=== PATIENT | female | born 1990 | race Caucasian/White ===

== ENCOUNTER 2017-02-09 10:11 | Emergency (ER) | payer MEDICAID ==
[2010-04-23 15:27] VITALS: BMI 26.1
[2017-02-09 11:47] LABS: BASOPHILS 0.2 % (0.0-2.0); EOSINOPHILS 0.6 % (0-7); HEMATOCRIT 39.7 % (36.0-48.0); IMMATURE GRANULOCYTES 0.2 % (0-5); MCHC 35.3 g/dL (31.0-37.0); MCV 93.6 fL (80.0-100.0); MEAN PLATELET VOLUME 10.5 fL (7.4-10.4); MONOCYTES 9.9 % (2-11); NEUTROPHILS 56.1 % (40-80); RBC 4.24 10x6/uL (4.00-5.40); RDW 12.5 % (11.5-14.5); WBC 8.7 10x3/uL (4.8-10.8)
[2017-02-09 11:50] LABS: PLATELET COUNT 255 10x3/uL (130-400)
[2017-02-09 12:00] LABS: ALBUMIN 4.3 g/dL (3.4-5.0); ALKALINE PHOSPHATASE 30 U/L (46-116); ALT (SGPT) 15 U/L (10-68); BILIRUBIN - TOTAL 0.74 mg/dL (0.2-1.3); CALC OSMOLALITY 278 mosm/kg (275-300); CALCIUM 9.6 mg/dL (8.5-10.1); CARBON DIOXIDE 23.4 mmol/L (21.0-32.0); CHLORIDE - SERUM 105 mmol/L (98-107); CREATININE - SERUM 0.7 mg/dL (0.6-1.3); GLUCOSE 97 mg/dL (74-106); POTASSIUM - SERUM 3.6 mmol/L (3.5-5.1); PROTEIN - SERUM 7.9 g/dL (6.4-8.2); SODIUM 141 mmol/L (136-145); UREA NITROGEN 8 mg/dL (7-18); eGFR NON AFRICAN AMERICAN > 90 mL/min (90-120)
== END 2017-02-09 13:20 | disposition home or self-care (01) ==
LOC: D.ER 10:11
PROVIDERS: Emergency Medicine
DX: R06.00 Dyspnea, unspecified (principal); F41.9 Anxiety disorder, unspecified

== ENCOUNTER 2017-05-15 01:09 | Emergency (ER) | payer MEDICAID ==
[2010-04-23 15:27] VITALS: BMI 26.1
== END 2017-05-15 01:45 | disposition home or self-care (01) ==
LOC: D.ER 01:09
DX: S90.31XA Contusion of right foot, initial encounter (principal); S40.022A Contusion of left upper arm, initial encounter; Y04.2XXA Assault by strike against or bumped into by another person, initial encounter; Y93.89 Activity, other specified; Y92.89 Other specified places as the place of occurrence of the external cause; S01.81XA Laceration without foreign body of other part of head, initial encounter

== ENCOUNTER 2017-07-28 14:34 | Emergency (ER) | payer MEDICAID ==
[2010-04-23 15:27] VITALS: BMI 26.1
[2017-07-28 15:42] LABS: BASOPHILS 0.3 % (0-2); EOSINOPHILS 0.8 % (0-7); HEMATOCRIT 41.5 % (36.0-48.0); HEMOGLOBIN 14.6 g/dL (12-16); IMMATURE GRANULOCYTES 0.1 % (0-5); MCH 33.6 pg (26.0-34.0); MCHC 35.2 g/dL (31.0-37.0); MCV 95.6 fL (80.0-100.0); MEAN PLATELET VOLUME 10.7 fL (7.4-10.4); MONOCYTES 14.9 % (2-11); NEUTROPHILS 56.9 % (40-80); PLATELET COUNT 220 10x3/uL (130-400); RBC 4.34 10x6/uL (4.00-5.40); RDW 12.1 % (11.5-14.5); WBC 7.3 10x3/uL (4.8-10.8)
[2017-07-28 15:44] LABS: APPEARANCE HAZY (CLEAR); COLOR YELLOW (YELLOW); SPECIFIC GRAVITY 1.015 (1.005-1.020)
[2017-07-28 15:45] LABS: BILIRUBIN NEGATIVE (NEGATIVE); GLUCOSE NEGATIVE (NEGATIVE); KETONE NEGATIVE (NEGATIVE); LEUKOCYTE ESTERASE NEGATIVE (NEGATIVE); NITRITE NEGATIVE (NEGATIVE); PROTEIN NEGATIVE (NEGATIVE)
[2017-07-28 15:48] LABS: ALBUMIN 4.1 g/dL (3.4-5.0); ALKALINE PHOSPHATASE 37 U/L (46-116); ALT (SGPT) 19 U/L (10-68); BILIRUBIN - TOTAL 0.76 mg/dL (0.2-1.3); CALC OSMOLALITY 281 mosm/kg (275-300); CALCIUM 8.9 mg/dL (8.5-10.1); CARBON DIOXIDE 26.6 mmol/L (21.0-32.0); CHLORIDE - SERUM 105 mmol/L (98-107); CREATININE - SERUM 0.7 mg/dL (0.6-1.3); GLUCOSE 88 mg/dL (74-106); LIPASE 192 U/L (73-393); POTASSIUM - SERUM 3.9 mmol/L (3.5-5.1); PROTEIN - SERUM 7.5 g/dL (6.4-8.2); SODIUM 142 mmol/L (136-145); UREA NITROGEN 12 mg/dL (7-18); eGFR NON AFRICAN AMERICAN > 90 mL/min (90-120)
[2017-07-28 15:55] LABS: HCG URINE NEGATIVE (NEGATIVE)
== END 2017-07-28 16:34 | disposition home or self-care (01) ==
LOC: D.ER 14:34
PROVIDERS: Emergency Medicine
DX: R10.9 Unspecified abdominal pain (principal)

== ENCOUNTER 2018-05-25 09:26 | Emergency (ER) | payer MEDICAID ==
[~2018-05-25] VITALS: Ht 167.6 cm; Wt 61.4 kg
[2018-05-25 09:36] VITALS: Ht 167.6 cm; Wt 61.4 kg
[2018-05-25 10:05] LABS: BASOPHILS 0.4 % (0-2); EOSINOPHILS 1.3 % (0-7); HEMATOCRIT 39.5 % (36.0-48.0); IMMATURE GRANULOCYTES 0.4 % (0-5); LYMPHOCYTES 26.1 % (15-50); MCH 33.8 pg (26.0-34.0); MCHC 35.4 g/dL (31.0-37.0); MCV 95.4 fL (80.0-100.0); MEAN PLATELET VOLUME 10.2 fL (7.4-10.4); MONOCYTES 13.4 % (2-11); NEUTROPHILS 58.4 % (40-80); PLATELET COUNT 225 10x3/uL (130-400); RBC 4.14 10x6/uL (4.00-5.40); WBC 7.6 10x3/uL (4.8-10.8)
[2018-05-25 10:24] LABS: ALKALINE PHOSPHATASE 37 U/L (46-116); ALT (SGPT) 12 U/L (10-68); BILIRUBIN - TOTAL 0.65 mg/dL (0.2-1.3); CALC OSMOLALITY 275 mosm/kg (275-300); CALCIUM 9.1 mg/dL (8.5-10.1); CARBON DIOXIDE 24.4 mmol/L (21.0-32.0); CHLORIDE - SERUM 103 mmol/L (98-107); CREATININE - SERUM 0.6 mg/dL (0.6-1.3); GLUCOSE 92 mg/dL (74-106); POTASSIUM - SERUM 3.9 mmol/L (3.5-5.1); PROTEIN - SERUM 7.3 g/dL (6.4-8.2); SODIUM 139 mmol/L (136-145); UREA NITROGEN 7 mg/dL (7-18); eGFR NON AFRICAN AMERICAN > 90 mL/min (90-120)
[2018-05-25 10:31] LABS: APPEARANCE HAZY (CLEAR); COLOR YELLOW (YELLOW)
[2018-05-25 10:32] LABS: BILIRUBIN NEGATIVE (NEGATIVE); GLUCOSE NEGATIVE (NEGATIVE); KETONE NEGATIVE (NEGATIVE); NITRITE POSITIVE (NEGATIVE); PROTEIN NEGATIVE (NEGATIVE); UROBILINOGEN NORMAL (NORMAL)
[2018-05-25 10:33] LABS: RED CELLS - URINE 0-5 /hpf (0-5)
[2018-05-25 10:34] LABS: BACTERIA MANY /hpf (NONE SEEN)
[2018-05-25 10:35] LABS: MUCUS <1+ /lpf (NONE SEEN)
[2018-05-25 10:45] LABS: HCG - QUANTITATIVE (MATERNAL) 30666 mIU/mL
[2018-05-25] MEDS ORDERED: MACROBID100 MG PO (11:42)
[2018-05-25 12:14] VITALS: BP 111/77
[2018-05-28 12:08] LABS: CHLAMYDIA TRACHOMATIS, NAA Negative (Negative)
== END 2018-05-25 12:15 | disposition home or self-care (01) ==
LOC: D.ER 09:26
PROVIDERS: Family Medicine
DX: O20.9 Hemorrhage in early pregnancy, unspecified (principal); Z3A.00 Weeks of gestation of pregnancy not specified; R10.30 Lower abdominal pain, unspecified

== ENCOUNTER 2018-06-02 19:06 | Emergency (ER) | payer MEDICAID ==
[~2018-06-02] VITALS: Ht 167.6 cm; Wt 58.2 kg
[~2018-06-02 19:06] MED LIST: MACROBID100 MG PO
[2018-06-02 19:10] VITALS: Ht 167.6 cm; Wt 58.2 kg
[2018-06-02 21:29] VITALS: BP 121/75
[2018-06-03] MEDS ORDERED: MEDROL DOSE PACK4 MG PO (20:18)
[2018-06-03] MEDS ORDERED: ZANTAC150 MG PO (20:18)
== END 2018-06-02 21:05 | disposition home or self-care (01) ==
LOC: D.ER 19:06
DX: O26.86 Pruritic urticarial papules and plaques of pregnancy (PUPPP) (principal); Z3A.08 8 weeks gestation of pregnancy

== ENCOUNTER 2018-06-03 19:40 | Emergency (ER) | payer MEDICAID ==
[~2018-06-03] VITALS: Ht 167.6 cm; Wt 58.2 kg
[2018-06-03 19:53] VITALS: Ht 167.6 cm; Wt 58.2 kg
[2018-06-03] MEDS ORDERED: MEDROL DOSE PACK4 MG PO (20:18)
[2018-06-03] MEDS ORDERED: ZANTAC150 MG PO (20:18)
[2018-06-03 20:29] VITALS: BP 116/74
== END 2018-06-03 20:31 | disposition home or self-care (01) ==
LOC: D.ER 19:40
DX: O26.86 Pruritic urticarial papules and plaques of pregnancy (PUPPP) (principal); Z3A.08 8 weeks gestation of pregnancy

== ENCOUNTER → 2018-08-28 08:20 | Outpatient (CLI) | payer MEDICAID ==
[2018-06-03 19:53] VITALS: BMI 20.7
[~2018-08-28 08:20] MED LIST changes: +MEDROL DOSE PACK4 MG PO; +ZANTAC150 MG PO
== END | disposition home or self-care (01) ==
LOC: D.US 08:20
DX: Z34.90 Encounter for supervision of normal pregnancy, unspecified, unspecified trimester (principal); Z3A.00 Weeks of gestation of pregnancy not specified

== ENCOUNTER → 2018-11-07 07:48 | Outpatient (CLI) | payer MEDICAID ==
[2018-06-03 19:53] VITALS: BMI 20.7
== END | disposition home or self-care (01) ==
LOC: D.US 07:48
DX: R10.11 Right upper quadrant pain (principal)

== ENCOUNTER 2019-01-10 05:46 | Inpatient (IN) | payer MEDICAID ==
[2019-01-10] VITALS (9 sets, daily range): BP systolic 109–123; BP diastolic 58–72; Ht 167.6 cm; Wt 76.7 kg
[~2019-01-10] VITALS: Ht 167.6 cm; Wt 76.7 kg
[2019-01-10] MEDS ORDERED: AMOXIL250 M1 (06:23)
[2019-01-10] MEDS ORDERED: ZITHROMAX250 MG (06:23)
[2019-01-10] MEDS ORDERED: ZITHROMAX TRI-500 MG (06:24)
[2019-01-10 07:17] LABS: HEMATOCRIT 30.8 % (36.0-48.0); HEMOGLOBIN 10.4 g/dL (12-16); MCH 32.9 pg (26.0-34.0); MCHC 33.8 g/dL (31.0-37.0); MCV 97.5 fL (80.0-100.0); MEAN PLATELET VOLUME 10.9 fL (7.4-10.4); RBC 3.16 10x6/uL (4.00-5.40); RDW 13.2 % (11.5-14.5); WBC 13.7 10x3/uL (4.8-10.8)
[2019-01-10 07:20] LABS: APPEARANCE CLEAR (CLEAR); BILIRUBIN NEGATIVE (NEGATIVE); COLOR STRAW (YELLOW); GLUCOSE NEGATIVE (NEGATIVE); KETONE NEGATIVE (NEGATIVE); NITRITE NEGATIVE (NEGATIVE); PROTEIN NEGATIVE (NEGATIVE); UROBILINOGEN NORMAL (NORMAL)
[2019-01-10 08:33] LABS: UDS - AMPHET NEGATIVE QUAL (NEGATIVE); UDS - BARB NEGATIVE QUAL (NEGATIVE); UDS - BENZO NEGATIVE QUAL (NEGATIVE); UDS - COCAINE NEGATIVE QUAL (NEGATIVE); UDS - OPIATE NEGATIVE QUAL (NEGATIVE); UDS - PCP NEGATIVE QUAL (NEGATIVE); UDS - THC NEGATIVE QUAL (NEGATIVE)
--- NOTE | 2019-01-10 13:46 | NUR ---
RECEIVED PT FROM VIA BED TO ROOM 1274. BED LOCKED AND PLACED IN LOW POSITION. VSS. HRRR WITHOUT AUDIBLE MURMUR. BBS CLEAR. BS HYPOACTIVE. ABDOMEN SOFT/NON-DISTENDED. ABDOMINAL DRESSING DRY WITHOUT DRAINAGE NOTED. FUNDUS AT 2/U. MASSAGED WITH HALF DOLLAR SIZED CLOT EXPRESSED. PERICARE DONE. MOD RUBRA LOCHIA NOTED ON CHUX. PT REPOSITIONS TO RIGHT SIDE IN BED. PROPPED WITH PILLOW. ICE PACK TO INCISION. SCDS ON BLE. PUMP ON. PIV TO RIGHT FOREARM. SITE CLEAR. LR INFUSING WITH PITOCIN 20 UNITS AT 125 ML/HR. PT STATES C/O INCISIONAL PAIN OF "6" ON 0-10 PAIN SCALE. PT ORIENTED TO ROOM, BED, AND CALL LIGHT. SR UPX 2. CALL LIGHT IN REACH.
--- NOTE | 2019-01-10 14:06 | NUR ---
PT C/O INCISIONAL PAIN OF "6" ON 0-10 PAIN SCALE. TORADOL 30 MG GIVEN SIVP OVER 2 MINUTES. PT INSTRUCTED ON MED. VERBALIZES UNDERSTANDING. NEW BAG NS WITH PITOCIN UP AT 125 ML/HR.
--- NOTE | 2019-01-10 14:32 | NUR ---
PT REQUESTS AND RECEIVES CHRISTINE.
--- NOTE | 2019-01-10 14:35 | NUR ---
HOLLOWAY TO GRAVITY DRAINING CLEAR, YELLOW URINE. 600 ML NOTED IN BAG AT THIS TIME.
--- NOTE | 2019-01-10 14:50 | NUR ---
PT C/O INCISIONAL PAIN OF "9" ON 0-10 PAIN SCALE. DILAUDID 2 MG GIVEN SIVP OVER 2 MINUTES. PT INSTRUCTED ON MED. VERBALIZES UNDERSTANDING.
--- NOTE | 2019-01-10 15:00 | NUR ---
FUNDUS FIRM AT U/U. RUBRA LOCHIA MOD AMT. NO CLOTS NOTED. PERIPAD CHANGED.
--- NOTE | 2019-01-10 15:48 | NUR ---
PT SITTING UP IN BED. C/O NAUSEA. EMESIS BASIN AND COLD, WET CLOTH PROVIDED TO PT. PT STATES "I THINK IT WAS THAT WATER". STATES "I'M BETTER NOW".
--- NOTE | 2019-01-10 16:30 | NUR ---
I/O COMPLETED. PERICARE DONE. CHUX AND PERIPAD CHANGED. MOD RUBRA LOCHIA NOTED. NO CLOTS EXPRESSED ON FUNDAL MASSAGE. ABDOMINAL DRESSING DRY WITHOUT DRAINAGE. FRESH ICE PACK TO INCISION. PT REPOSITIONS TO LEFT SIDE. PROPPED WITH PILLOWS. PT MOVES WELL IN BED. TAN WELL.
--- NOTE | 2019-01-10 18:00 | NUR ---
PT LYING SUPINE IN BED. HOLDS INFANT WITH MUCH WARMTH SHOWN. DENIES C/O PAIN. REQUESTS AND RECEIVES LIGHTS OUT.
--- NOTE | 2019-01-10 19:10 | NUR ---
REPORT GIVEN TO ON-COMING SHIFT.
--- NOTE | 2019-01-10 19:23 | NUR ---
PT REPORT RECIEVED FROM TRIPP REED TO ASSUME PATIENT CARE.
--- NOTE | 2019-01-10 19:33 | NUR ---
DILAUDID 2 MG SLOW IVP PER PT REQUEST FOR PAIN 05/30. SEE EMAR.
--- NOTE | 2019-01-10 20:03 | NUR ---
TORADOL 30MG SLOW IVP PER MD ORDERS AND ANCEF 2 GRAMS IVPB PER ALARIS PUMP STARTED AT THIS TIME. SEE EMAR
--- NOTE | 2019-01-10 20:12 | NUR ---
PATIENT LYING IN BED HOLDING INFANT SKIN TO SKIN. RESPIRATIONS EVEN AND NON LABORED. SHIFT ASSESSMENT COMPLETED, SEE FLOWSHEET. LOW TRANSVERSE ABDOMINAL DRESSING REMAINS CLEAN DRY AND INTACT. PERICARE PERFORMED, MODERATE BLEEDING NOTED UPON PATIENT LIFTING HER BUTTOCKS OFF OF THE BED TO CHANGE THE CHUX PAD, NO CLOTS NOTED AND CLEAN PADS PLACED. HOLLOWAY CATHETER DRAINING TO GRAVITY, NOTED TO HAVE 150 ML CLEAR YELLOW URINE IN BAG. FRESH ICE PACK PLACED TO ABDOMEN. BOWEL SOUNDS ACTIVE IN ALL FOUR QUADRANTS, CRACKERS AND JUICE PROVIDED PER PT REQUEST. NO FURTHER NEEDS IDENTIFIED AT THIS TIME. BED REMAINS LOCKED IN LOW POSITION, SIDE RAILS UPX2, CALL JOHNSON AND TRAY TABLE IN REACH. WILL CONTINUE TO MONITOR.
--- NOTE | 2019-01-10 21:40 | NUR ---
PT STATES THAT SHE IS UNABLE TO EAT THE CRACKERS AND WILL JUST STICK WITH JUICE AND CHICKEN BROTH. WET WASH CLOTH PLACED TO FOREHEAD PER REQUEST. PT DENIES OTHER NEEDS.
--- NOTE | 2019-01-10 22:30 | NUR ---
DR GÓMEZ CALLED LABOR UNIT, NEW ORDERS NOTED TO SALINE LOCK IV AND D/C IV FLUIDS AND IV PAIN MEDICINE WELL D/C HOLLOWAY CATHETER. PT MAY HAVE A REGULAR DIET.
--- NOTE | 2019-01-10 23:12 | NUR ---
DILAUDID 2 MG SLOW IVP PER PT REQUEST THEN IV SALINE LOCKED PER MD ORDERS. HOLLOWAY CATHETER REMOVED WITHOUT INCIDENT WITH 250ML CLEAR YELLOW URINE IN BAG. PERICARE PERFORMED, BLEEDING SMALL RUBRA, NO CLOTS. CLEAN PADS PLACED. FRESH ICE PACK TO ABDOMEN AND COOL RAG FOR PTS FOREHEAD. SANDWICH TRAY, JELLO AND PUDDING PROVIDED ALONG WITH A CUP OF ICE PER PT REQUEST. BED REMAINS LOCKED IN LOW POSITION, SIDE RAILS UPX2, CALL JOHNSON AND TRAY TABLE IN REACH. WILL CONTINUE TO MONITOR.
--- NOTE | 2019-01-11 01:57 | NUR ---
TORADOL 30MG SLOW IVP PER MD ORDERS. SEE EMAR
--- NOTE | 2019-01-11 02:00 | NUR ---
PATIENT HAD GOTTEN HERSELF UP TO THE BATHROOM, VOIDED 100ML AND PERICARE PERFORMED. CLEAN PADS IN PLACE. FRESH ICE PACK PLACED TO ABDOMEN AND PILLOW PLACED UNDER ARM WHILE HOLDING FOR COMFORT. PT BED REMAINS LOCKED IN LOW POSITION, SIDERAILS UPX2, CALL JOHNSON AND TRAY TABLE IN REACH. WILL CONTINUE TO MONITOR.
--- NOTE | 2019-01-11 02:41 | NUR ---
PERCOCET 10/325MG PO PER PT REQUEST FOR 810 PAIN. PATIENT EATING SANDWICH AND HOLDING INFANT. DENIES OTHER NEEDS. WILL CONTINUE TO MONITOR.
--- NOTE | 2019-01-11 04:52 | NUR ---
PATIENT ASSISTED UP TO BATHROOM AT THIS TIME, VOIDED WITHOUT DIFFICULTY. PT STATES SHE HAD TWO SMALL CLOTS. PERICARE PERFORMED, CLEAN PAD AND PANTIES PROVIDED AND PT BACK TO BED. REMAINS AT BEDSIDE IN OPEN CRIB, SIGNIFICANT OTHER REMAINS AT BEDSIDE WELL. NO FURTHER NEEDS IDENTIFIED. WILL CONTINUE TO MONITOR.
--- NOTE | 2019-01-11 06:10 | NUR ---
ICE BROUGHT TO PATIENT PER REQUEST. DENIES OTHER NEEDS. WILL CONTINUE TO MONITOR.
--- NOTE | 2019-01-11 07:25 | NUR ---
DR GÓMEZ TO PT ROOM.
[2019-01-11 07:28] LABS: RAPID PLASMA REAGIN Non Reactive (Non Reactive)
[2019-01-11 07:39] VITALS: BP 112/61
--- NOTE | 2019-01-11 07:39 | NUR ---
PT LYING SUPINE IN BED. AWAKE. AAO X 3. VSS. HRRR WITHOUT AUDIBLE MURMUR. BBS CLEAR. BS X 4. ABDOMEN SOFT/NON-DISTENDED. PT STATES PASSING GAS. ABDOMINAL DRESSING DRY WITHOUT DRAINAGE NOTED. FUNDUS FIRM AT U/1. RUBRA LOCHIA SMALL AMT. NO CLOTS NOTED. NEG HOMANS' SIGN. PPP. NO EDEMA NOTED TO BLE. PT C/O ABDOMINAL AND RIB PAIN OF "8" ON 0-10 PAIN SCALE. SL TO LEFT FOREARM. FLUSHES WITH NS. SITE CLEAR. TORADOL 30 MG GIVEN SIVP OVER 2 MINUTES. SL FLUSHED WITH NS AFTER MED. SITE CLEAR. PT TAN WELL. PT REQUESTS AND RECEIVES CRANBERRY JUICE AND PRUNE JUICE. VOICES NO OTHER C/O OR NEEDS. SR UP X 2. CALL LIGHT IN REACH.
--- NOTE | 2019-01-11 08:55 | NUR ---
PT AMBULATORY IN ROOM CARING FOR INFANT. REGULAR DIET SERVED. PT STATES FEELS BETTER OUT OF BED.
--- NOTE | 2019-01-11 09:15 | NUR ---
PT AMBULATORY IN HALLS. TOLERATING ACTIVITY WELL.
--- NOTE | 2019-01-11 11:25 | NUR ---
PT CALLS ON LIGHT. REQUESTS PAIN MED. NORCO GIVEN PO ORDERED. PT INSTRUCTED ON MED. VERBALIZES UNDERSTANDING.
[2019-01-11 13:54] VITALS: BP 132/69
--- NOTE | 2019-01-11 14:05 | NUR ---
PT UP TO SHOWER. BED LINENS CHANGED.
--- NOTE | 2019-01-11 14:12 | NUR ---
DR GÓMEZ ON UNIT. CLARIFIED ORDERS AND ORDERS RECEIVED.
--- NOTE | 2019-01-11 15:39 | NUR ---
PT SITTING UP IN CHAIR. C/O INCISIONAL PAIN AND NECK PAIN OF "10" ON 0-10 PAIN SCALE. NORCO 10/325 2 TABS GIVEN PO ORDERED. PT ALSO GIVEN MYLICON 80 MG CHEW TAB ORDERED. PT INSTRUCTED ON MEDS. VERBALIZES UNDERSTANDING.
--- NOTE | 2019-01-11 16:33 | NUR ---
PT SITTING UP ON COUCH. STATES PAIN CONTINUES. STATES PAIN MED NOT RELIEVING PAIN. PT TO BED. DULCOLAX SUPPOSITORY GIVEN TO PT. PT INSTRUCTED ON MED AND TO HOLD FOR AT LEAST 30 MINUTES. PT VERBALIZES UNDERSTANDING.
--- NOTE | 2019-01-11 18:06 | NUR ---
PT SITTING UP IN BED. HOLDS WITH MUCH WARMTH SHOWN. STATES FEELS MUCH BETTER SINCE TAKING SUPPOSITORY. STATES HAS HAD SMALL BM AND PASSED A LOT OF GAS. REQUESTS AND RECEIVES CHICKEN BROTH.
--- NOTE | 2019-01-11 18:52 | NUR ---
PT AMBULATORY IN HALLS.
--- NOTE | 2019-01-11 19:00 | NUR ---
PT REPORT RECEIVED FROM BRIANNA ALMAGUER TO ASSUME PATIENT CARE.
[2019-01-11 19:37] VITALS: BP 123/58
--- NOTE | 2019-01-11 19:48 | NUR ---
IBUPROFEN 600MG PO, NORCO 10/325MG TWO TABS PO AND SIMETHICONE 80 MG PO PER PT REQUEST AND MD ORDERS. SEE EMAR
--- NOTE | 2019-01-11 20:00 | NUR ---
GRAPE JUICE AND ICE PROVIDED PER PT REQUEST.
--- NOTE | 2019-01-11 20:33 | NUR ---
PATIENT RESTING QUIETLY WITH IN HER ARMS, SIGNIFICANT OTHER IN BED WITH HER. BED REMAINS LOCKED IN LOW POSITION, SIDE RAILS UPX2, CALL JOHNSON AND TRAY TABLE IN REACH. WILL CONTINUE TO MONITOR.
--- NOTE | 2019-01-11 22:16 | NUR ---
PATIENT PROVIDED WITH TRAVIS DA SILVA PER REQUEST, DENIES OTHER NEEDS. WILL CONTINUE TO MONITOR.
--- NOTE | 2019-01-11 23:10 | NUR ---
PT SITTING IN BED HOLDING , DENIES NEEDS. BED REMAINS LOCKED IN LOW POSITION, SIDE RAILS UPX2, CALL JOHNSON AND TRAY TABLE IN REACH.
--- NOTE | 2019-01-12 01:17 | NUR ---
PATIENT AMBULATING IN ROOM, [place] 5/325 ONE TAB PO PER PT REQUEST. SEE EMAR. DENIES OTHER NEEDS. WILL CONTINUE TO MONITOR
--- NOTE | 2019-01-12 03:02 | NUR ---
PT SLEEPING WITH NO DISTRESS NOTED, WILL CONTINUE TO MONITOR.
--- NOTE | 2019-01-12 05:30 | NUR ---
PATIENT SLEEPING WITH EVEN RESPIRATIONS, NO DISTRESS NOTED. SIGNIFICANT OTHER REMAINS AT BEDSIDE FOR SUPPORT. BED REMAINS LOCKED IN LOW POSITION, SIDE RAILS UPX2, CALL JOHNSON AND TRAY TABLE IN REACH. WILL CONTINUE TO MONITOR.
--- NOTE | 2019-01-12 06:35 | NUR ---
MEDICATION ADMINISTERED PER PT REQUEST FOR 06/30 PAIN. SEE EMAR TRAVIS DA SILVA PROVIDED. PT DENIES OTHER NEEDS, WILL CONTINUE TO MONITOR.
--- NOTE | 2019-01-12 07:05 | NUR ---
ASSUMED CARE OF THIS PATIENT AFTER REPORT.
[2019-01-12 07:30] VITALS: BP 108/59
--- NOTE | 2019-01-12 07:30 | NUR ---
SHIFT ASSESSMENT COMPLETED. SITTING UP ON EDGE OF BED HOLDING IN ARMS. VISITOR SLEEPING ON COUCH. SAYS SHE RECEIVED MEDICATION EARLIER BUT SAYS IT "HAS NOT KICKED IN". GETTING READY TO GET UP TO BATHROOM. PASSING GAS AND VOIDING WITHOUT DIFFICULTY. DISCUSSED RELIEF MEASURES FOR GAS AND INCISION CARE. ANTICIPATE DC HOME TODAY. NON SMOKER, RH POSITIVE, RUBELLA IMMUNE, LAST TDAP BOOSTER 2009, DECLINES FLU VACCINE. NO REQUESTS AT PRESENT.
--- NOTE | 2019-01-12 08:58 | NUR ---
SITTING UP IN BED BOTTLEFEEDING . DENIES NEEDING ANYTHING. SAYS HER PAIN IS GETTING BETTER. NOW A 04/30. SIDE RAILS UP X 2, CALL LIGHT IN REACH.
--- NOTE | 2019-01-12 10:01 | NUR ---
SITTING UP IN BED TALKING ON PHONE. INFANT IN ARMS. DENIES NEEDING ANYTHING AT THIS TIME. CALL LIGHT IN REACH. TO CALL IF ANYTHING IS NEEDED.
--- NOTE | 2019-01-12 11:25 | NUR ---
AMBULATING IN [place]. IN NURSERY.
--- NOTE | 2019-01-12 11:34 | NUR ---
PT AMBULATING IN HALLS, REQUESTING TO REPEAT SUPPOSITORY THAT SHE HAD YESTERDAY TO HELP WITH GAS PAIN AND ABD DISCOMFORT. PT AMBULATES BACK TO ROOM. DULCOLAX SUPP GIVEN. PT ENCOURAGED TO CONTINUE AMBULATING TO HELP GAS MOVE, UNDERSTANDING VERBALIZED. PT ASKS WHEN HER PAIN MEDS WILL BE AVAILABLE FOR HER TO TAKE BOTH MOTRIN AND NORCO AT THE SAME TIME AGAIN. PT INSTRUCTED MOTRIN WILL BE AVAILABLE AT APPROX 1230, PT STATES SHE WILL WAIT AND TAKE BOTH PAIN MEDS AT THAT TIME. DENIES FURTHER NEEDS. WILL CONT TO MONITOR.
--- NOTE | 2019-01-12 13:04 | NUR ---
DR GÓMEZ WAS ON L&D TO SEE PATIENT. AWARE THAT PATIENT DESIRED PAIN MEDICATIONS. HE SAID GO AHEAD AND GIVE AND HE WILL WRITE DC ORDERS WHEN FINISHED. DC ORDERS AND MEDICATION RECONCILLIATION WAS COMPLETED PRIOR TO MED ADMINISTRATION. NORCO 10 MG 2 TABS AND MOTRIN 600 MG GIVEN PO PER REQUEST OF PATIENT. SAYS THEY HELPED DECREASED THE PAIN LONGER TOGETHER. SITTING UP IN BED, INFANT IN ROOM. WILL COMPLETE DC PAPERWORK.
[2019-01-12] MEDS ORDERED: HYDROCODON-ACE1 EAC2 PO (13:49)
--- NOTE | 2019-01-12 14:45 | NUR ---
DC'D VIA WHEELCHAIR AFTER PROVIDING VERBAL AND WRITTEN DC INSTRUCTION ON POSTOP CARE, DANGER SIGNS, S&S INFECTION, PP DEPRESSION, BOTTLEFEEDING, BREASTCARE AND FOLLOW-UP. NO SPECIFIC QUESTIONS ASKED. IN [place], FOB DRIVING. HAS BEEN DC'D.
== END 2019-01-12 14:45 | disposition home or self-care (01) | DRG 785 ==
LOC: D.LD 05:46 → D.SDCHOLD 12:00 → D.LD 01-12 14:45
PROVIDERS: ADMIT Obstetrics & Gynecology
PROC: 10D00Z1 Extraction of Products of Conception, Low, Open Approach (ICD-10-PCS; principal; 2019-01-10 12:00)
PROC: 0UB70ZZ Excision of Bilateral Fallopian Tubes, Open Approach (ICD-10-PCS; 2019-01-10 12:00)
DX: O34.211 Maternal care for low transverse scar from previous cesarean delivery (principal); N85.8 Other specified noninflammatory disorders of uterus; Z3A.39 39 weeks gestation of pregnancy; Z37.0 Single live birth; Z30.2 Encounter for sterilization; Z30.09 Encounter for other general counseling and advice on contraception

== ENCOUNTER 2019-11-01 10:02 | Emergency (ER) | payer MEDICAID ==
[~2019-11-01] VITALS: Ht 167.6 cm; Wt 65.5 kg
[~2019-11-01 10:02] MED LIST changes: +AMOXIL250 M1; +HYDROCODON-ACE1 EAC2 PO; +ZITHROMAX TRI-500 MG; +ZITHROMAX250 MG
[2019-11-01 10:07] VITALS: Ht 167.6 cm; Wt 65.5 kg
[2019-11-01 10:40] LABS: BASOPHILS 0.1 % (0-2); EOSINOPHILS 0.8 % (0-7); HEMATOCRIT 41.9 % (36.0-48.0); HEMOGLOBIN 14.2 g/dL (12-16); IMMATURE GRANULOCYTES 0.3 % (0-5); LYMPHOCYTES 21.5 % (15-50); MCH 33.3 pg (26.0-34.0); MCHC 33.9 g/dL (31.0-37.0); MCV 98.1 fL (80.0-100.0); MEAN PLATELET VOLUME 10.5 fL (7.4-10.4); MONOCYTES 9.6 % (2-11); NEUTROPHILS 67.7 % (40-80); PLATELET COUNT 227 10x3/uL (130-400); RBC 4.27 10x6/uL (4.00-5.40); RDW 12.5 % (11.5-14.5); WBC 7.1 10x3/uL (4.8-10.8)
[2019-11-01 10:58] LABS: HCG URINE NEGATIVE (NEGATIVE)
[2019-11-01 10:59] LABS: APPEARANCE CLEAR (CLEAR); BILIRUBIN NEGATIVE (NEGATIVE); COLOR YELLOW (YELLOW); GLUCOSE NEGATIVE (NEGATIVE); KETONE NEGATIVE (NEGATIVE); NITRITE NEGATIVE (NEGATIVE); PROTEIN NEGATIVE (NEGATIVE); SPECIFIC GRAVITY 1.015 (1.005-1.020); UROBILINOGEN NORMAL (NORMAL)
[2019-11-01 11:01] LABS: CALC OSMOLALITY 277 mosm/kg (275-300); CALCIUM 9.1 mg/dL (8.5-10.1); CARBON DIOXIDE 28.4 mmol/L (21.0-32.0); CHLORIDE - SERUM 104 mmol/L (98-107); CREATININE - SERUM 0.6 mg/dL (0.6-1.3); GLUCOSE 89 mg/dL (74-106); POTASSIUM - SERUM 3.9 mmol/L (3.5-5.1); SODIUM 139 mmol/L (136-145); UREA NITROGEN 15 mg/dL (7-18); eGFR NON AFRICAN AMERICAN > 90 mL/min (90-120)
[2019-11-01 11:10] LABS: ALBUMIN 4.1 g/dL (3.4-5.0); ALKALINE PHOSPHATASE 42 U/L (46-116); ALT (SGPT) 16 U/L (10-68); AMYLASE - SERUM 56 U/L (25-115); BILIRUBIN - TOTAL 0.29 mg/dL (0.2-1.3); LIPASE 158 U/L (73-393); PROTEIN - SERUM 7.1 g/dL (6.4-8.2); TROPONIN-I < 0.017 ng/mL (0.000-0.060)
[2019-11-01 11:24] LABS: UDS - AMPHET NEGATIVE QUAL (NEGATIVE); UDS - BARB NEGATIVE QUAL (NEGATIVE); UDS - BENZO NEGATIVE QUAL (NEGATIVE); UDS - COCAINE NEGATIVE QUAL (NEGATIVE); UDS - OPIATE NEGATIVE QUAL (NEGATIVE); UDS - PCP NEGATIVE QUAL (NEGATIVE); UDS - THC POSITIVE QUAL (NEGATIVE)
[2019-11-01] MEDS ORDERED: IBUPROFEN800 MG PO (12:17)
[2019-11-01 12:31] VITALS: BP 118/64
== END 2019-11-01 12:40 | disposition home or self-care (01) ==
LOC: D.ER 10:02
PROVIDERS: Family Medicine
DX: N83.202 Unspecified ovarian cyst, left side (principal); N92.6 Irregular menstruation, unspecified; R10.2 Pelvic and perineal pain

== ENCOUNTER 2019-11-09 10:54 | Emergency (ER) | payer MEDICAID ==
[~2019-11-09] VITALS: Ht 167.6 cm; Wt 61.4 kg
[~2019-11-09 10:54] MED LIST changes: +IBUPROFEN800 MG PO
[2019-11-09 11:00] VITALS: Ht 167.6 cm; Wt 61.4 kg
[2019-11-09] MEDS ORDERED: VOLTAREN75 MG PO (12:59)
[2019-11-09] MEDS ORDERED: PROTONIX20 MG PO (12:59)
[2019-11-09 13:14] VITALS: BP 122/64
== END 2019-11-09 13:14 | disposition home or self-care (01) ==
LOC: D.ER 10:54
DX: S13.9XXA Sprain of joints and ligaments of unspecified parts of neck, initial encounter (principal); V89.2XXA Person injured in unspecified motor-vehicle accident, traffic, initial encounter; Y93.9 Activity, unspecified; Y92.9 Unspecified place or not applicable; M25.562 Pain in left knee